=== PATIENT | female | born 1940 | race Caucasian/White ===

== ENCOUNTER 2023-09-26 18:39 | Emergency (ER) | payer MEDICAID ==
[~2023-09-26] VITALS: Ht 154.9 cm; Wt 46.0 kg
[2023-09-26 18:42] VITALS: BP 96/50; PULSE 84; RESP 17; TEMP 98.6; O2SAT 100
== END 2023-09-27 07:15 ==
LOC: ER 18:39
DX: R07.89 Other chest pain (principal); I10 Essential (primary) hypertension
CPT/HCPCS: 31500; 82962; 93880; 99285